=== PATIENT | female | born 1995 | race Two or more races ===

== ENCOUNTER → 2018-09-14 | Emergency (ER) | payer BC, OTHER ==
[~2018-09-14] VITALS: Ht 175.3 cm; Wt 65.8 kg
[~2018-09-14] MED LIST: BIRTH CONTROL PILL PO; DEXAMETHASONE4 MG PO; MOTRIN800 MG PO; NORCO 5-325 TA1 EACH PO; OMEPRAZOLE20 M1 PO; PREDNISONE20 MG PO; SEPTRA DS TABL1 EACH PO; SULFASALAZINE500 MG PO; ZYVOX600 MG PO
--- NOTE | 2018-09-15 07:38 | EKG ---
[facility] [address] [facility] [place] [address] Signed Supraventricular tachycardia Right axis deviation Abnormal ECG No previous ECGs available Confirmed by UZMA BONILLA MD ([id number] on 09/15/2018 7:38:01 AM Electronically Signed By: UZMA BONILLA MD 09/15/18 0738 PATIENT NAME: MIKE KRAUS GABINO Electrocardiogram DATE OF : [birth year] PHYSICIAN: UZMA BONILLA MD REPORT #: [id number] REPORT IS CONFIDENTIAL AND NOT TO BE RELEASED WITHOUT AUTHORIZATION
--- NOTE | 2018-09-15 07:38 | EKG ---
[facility] [address] [place] [address] Signed Sinus tachycardia Rightward axis Borderline ECG When compared with ECG of 14-SEP-2018 23:02, (Unconfirmed) Vent. rate has decreased BY [address] no longer depressed in Anterior leads Confirmed by UZMA BONILLA MD ([id number] on 09/15/2018 7:38:16 AM Electronically Signed By: UZMA BONILLA MD 09/15/18 0738 PATIENT NAME: MIKE KRAUS GABINO Electrocardiogram DATE OF : [birth year] PHYSICIAN: UZMA BONILLA MD REPORT #: [id number] REPORT IS CONFIDENTIAL AND NOT TO BE RELEASED WITHOUT AUTHORIZATION
== END ==
LOC: ED 22:52
DX: I47.1 Supraventricular tachycardia (principal); Z88.0 Allergy status to penicillin; Z79.899 Other long term (current) drug therapy
CPT/HCPCS: 80053; 85025; 93005; 93010; 96374; 99285-25; J0153; J7030

== ENCOUNTER 2021-12-31 22:29 | Emergency (ER) | payer OTHER ==
[~2021-12-31] VITALS: Ht 175.3 cm; Wt 65.8 kg
[2021-12-31] MEDS ORDERED: CARDIZEM CD360 MG PO (22:54)
--- NOTE | 2022-01-01 21:42 | EKG ---
[facility] [address] [facility] [place], [place] [address] Signed Sinus tachycardia Otherwise normal ECG No previous ECGs available Confirmed by UZMA BONILLA MD ([id number] on 01/01/2022 9:42:28 PM Electronically Signed By: UZMA BONILLA MD 01/01/222141 PATIENT NAME: MIKE KRAUS GABINO Electrocardiogram DATE OF : [birth year] PHYSICIAN: UZMA BONILLA MD REPORT #: [id number] REPORT IS CONFIDENTIAL AND NOT TO BE RELEASED WITHOUT AUTHORIZATION
== END 2022-01-01 01:05 | disposition home or self-care (01) ==
LOC: ED 22:29
DX: I47.1 Supraventricular tachycardia (principal); M13.0 Polyarthritis, unspecified; Z88.0 Allergy status to penicillin; Z79.899 Other long term (current) drug therapy
CPT/HCPCS: 93005; 93010; 99284-25